=== PATIENT | male | born 1930 | race Caucasian/White ===

== ENCOUNTER 2017-07-16 18:58 | Inpatient (IN) | payer OTHER ==
[~2017-07-16] VITALS: Ht 172.7 cm; Wt 71.8 kg
[~2017-07-16 18:58] MED LIST: AMLODIPINE BESY10 MG PO; AMLODIPINE BESYL5 MG PO; ASPIR 8181 M1 PO; AUGMENTIN875 MG PO; BESIVANCE5 ML RIGHT EYE; CENTRUM SILVER1 EAC3 PO; CITALOPRAM HBR10 MG PO; COZAAR25 MG PO; CYANOCOBALAM1000 MCG PO; DIOVAN320 MG PO; DUREZOL 0.100 DROP/5 RIGHT EYE; FIBER THERAPY660 G1 PO; FINASTERIDE5 MG PO; FISH OIL 1,0001 EAC7 PO; FLAXSEED OIL1000 M4 PO; FLOMAX0.4 MG PO; Feosol PO; GLUCOVANCE 21 TABLET PO; GLYBURID-METFO1 EAC1 PO; HYDROCHLOROTH12.5 M3 PO; IRON160 M1 PO; LATANOPROST2.5 ML RIGHT EYE; LIDODERM 5% P1 PATCH TD; LOSARTAN POTAS100 MG PO; PANTOPRAZOLE SO40 MG PO; PLAVIX75 MG PO; PRAVASTATIN SOD20 MG PO; PRILOSEC10 MG PO; PROLENSA1.6 ML RIGHT EYE; PROTONIX40 MG PO; PriLOSEC PO; SIMBRINZA 1%-0.28 ML BOTH EYES; SUCRALFATE1 GM PO; ULTRAM50 MG PO; VERAPAMIL HCL240 M2 PO
[2017-07-16 20:05] LABS: MCH 29.9 PG (29.0-34.0); MCHC 33.4 G/DL (30.0-36.0); MCV 89.5 FL (86-99); MEAN PLAT.VOLUME 10.4 uM^3 (9.0-12.4); PLATELET COUNT 119 K/uL (156-360); RBC DIS.WIDTH-CV 12.4 % (11.8-14.6); RED BLOOD COUNT 3.24 M/uL (4.00-5.50); WHITE BLOOD COUNT 8.4 K/uL (4.1-10.2)
[2017-07-16 20:11] LABS: CHLORIDE 101 mEq/L (99-109); POTASSIUM 5.3 mEq/L (3.7-5.4); SODIUM 132 mEq/L (136-147)
[2017-07-16 20:14] LABS: GLUCOSE 254 mg/dL (70-99)
[2017-07-16 20:15] LABS: ANION GAP 11 MEQ/L (2-14)
[2017-07-16 20:16] LABS: TOTAL BILIRUBIN 1.7 mg/dL (0.0-1.0)
[2017-07-16 20:17] LABS: ALKALINE PHOSPHATASE 82 IU/L (3-129); GFR ESTIMATE (CALCULATED) 38 mL/min/
[2017-07-16 20:18] LABS: UREA NITROGEN (BUN) 41 mg/dL (9-23)
[2017-07-16 21:30] LABS: ADD MIUA? YES; BILIRUBIN NEGATIVE; BLOOD SMALL; COLOR YELLOW ((YELLOW)); GLUCOSE (STRIP) >=500; KETONES NEGATIVE; LEUKOCYTES NEGATIVE; NITRITE NEGATIVE; PROTEIN (STRIP) 30; SPECIFIC GRAVITY 1.015 (1.000-1.030); UROBILINOGEN 0.2 MG/DL (0.2-1.0)
[2017-07-16 21:50] LABS: BACTERIA RARE /HPF; EPITHELIAL CELLS RARE /HPF; HYALINE CASTS 0-5 /LPF; MUCUS TRACE /LPF; RED BLOOD CELLS 0-5 /HPF (0-5); UCUL ADDED? NO; WHITE BLOOD CELLS 0-5 /HPF (0-5)
[2017-07-16 22:49] LABS: LIPASE 17 U/L (1.0-51.0)
[2017-07-17 00:47] LABS: INFLUENZA A VIRAL ANTIGEN NEGATIVE; INFLUENZA B VIRAL ANTIGEN NEGATIVE
[2017-07-17] MEDS ORDERED: COLACE100 MG PO (01:46)
[2017-07-17] MEDS ORDERED: METFORMIN HCL500 MG PO (01:46)
[2017-07-17] MEDS ORDERED: ERGOCALCIF50000 UNIT PO (01:46)
[2017-07-17] MEDS ORDERED: PROMETHAZINE12.5 M1 PO (01:47)
[2017-07-17 03:29] LABS: TROP-I INTERPRETATION NEGATIVE
[2017-07-17 03:37] LABS: C-REACTIVE PROTEIN 126.3 MG/L (0-10)
[2017-07-17 04:30] VITALS: BP 121/60
[2017-07-17 06:25] LABS: HEMATOCRIT 27.2 % (38.0-50.0); MCH 29.4 PG (29.0-34.0); MCHC 32.4 G/DL (30.0-36.0); MEAN PLAT.VOLUME 10.3 uM^3 (9.0-12.4); PLATELET COUNT 102 K/uL (156-360); RBC DIS.WIDTH-CV 12.5 % (11.8-14.6); RBC DIS.WIDTH-SD 41.5 % (39-53); RED BLOOD COUNT 2.99 M/uL (4.00-5.50)
[2017-07-17 06:26] LABS: POINT-OF-CARE METER ID UU14208750
[2017-07-17 07:30] VITALS: BP 121/59
[2017-07-17 08:37] LABS: ANION GAP 9 MEQ/L (2-14); CHLORIDE 105 MEQ/L (99-109); POTASSIUM 4.4 MEQ/L (3.7-5.4); SODIUM 136 MEQ/L (136-147); TOTAL BILIRUBIN 1.2 MG/DL (0.0-1.0)
[2017-07-17 08:43] LABS: ALKALINE PHOSPHATASE 64 IU/L (3-129); GFR ESTIMATE (CALCULATED) 47 mL/min/; GLUCOSE 183 mg/dL (70-99); UREA NITROGEN (BUN) 36 mg/dL (9-23)
[2017-07-17 11:45] VITALS: BP 142/61
[2017-07-17 11:55] LABS: POINT-OF-CARE METER ID UU14208750
[2017-07-17 15:04] VITALS: BP 128/62
[2017-07-17 16:46] LABS: POINT-OF-CARE METER ID UU14208750
[2017-07-17 19:47] VITALS: BP 129/60
[2017-07-17 22:04] LABS: POINT-OF-CARE METER ID UU14208750
[2017-07-17 23:58] VITALS: BP 112/56
[2017-07-18 04:14] VITALS: BP 120/60
[2017-07-18 06:20] LABS: POINT-OF-CARE METER ID UU14208750
[2017-07-18 06:50] LABS: ALKALINE PHOSPHATASE 61 IU/L (3-129); ANION GAP 7 MEQ/L (2-14); CHLORIDE 105 MEQ/L (99-109); GFR ESTIMATE (CALCULATED) 51 mL/min/; GLUCOSE 173 mg/dL (70-99); POTASSIUM 4.6 MEQ/L (3.7-5.4); SAMPLE HEMOLYSIS CHECK 0; SAMPLE ICTERIC CHECK 0; SAMPLE LIPEMIA CHECK 0; SODIUM 137 MEQ/L (136-147); TOTAL BILIRUBIN 1.3 MG/DL (0.0-1.0); UREA NITROGEN (BUN) 25 mg/dL (9-23)
[2017-07-18 08:03] VITALS: BP 124/59
[2017-07-18 11:24] LABS: POINT-OF-CARE METER ID UU14208750
[2017-07-18 12:13] VITALS: BP 114/58
[2017-07-18 16:56] VITALS: BP 131/55
[2017-07-18 17:04] LABS: POINT-OF-CARE METER ID UU14208750
[2017-07-18 19:24] VITALS: BP 126/59
[2017-07-18 21:57] LABS: POINT-OF-CARE METER ID UU14162508
[2017-07-18 23:42] VITALS: BP 125/59
[2017-07-19] VITALS (8 sets, daily range): BP systolic 116–144; BP diastolic 55–77
[2017-07-19 02:34] LABS: TROP-I INTERPRETATION POSITIVE
[2017-07-19 02:39] LABS: TROPONIN-I 0.92 ng/mL (0.0-0.30)
[2017-07-19 07:02] LABS: POINT-OF-CARE METER ID UU14162508
[2017-07-19 08:57] LABS: TROP-I INTERPRETATION POSITIVE; TROPONIN-I 0.87 ng/mL (0.0-0.30)
[2017-07-19 09:26] LABS: MCH 30.9 PG (29.0-34.0); MCHC 34.5 G/DL (30.0-36.0); MCV 89.5 FL (86-99); MEAN PLAT.VOLUME 10.8 uM^3 (9.0-12.4); PLATELET COUNT 124 K/uL (156-360); RBC DIS.WIDTH-CV 12.4 % (11.8-14.6); RBC DIS.WIDTH-SD 40.7 % (39-53); RED BLOOD COUNT 3.24 M/uL (4.00-5.50); WHITE BLOOD COUNT 8.7 K/uL (4.1-10.2)
[2017-07-19 09:33] LABS: ANION GAP 9 MEQ/L (2-14); CHLORIDE 105 MEQ/L (99-109); POTASSIUM 4.4 MEQ/L (3.7-5.4); SAMPLE HEMOLYSIS CHECK 0; SAMPLE ICTERIC CHECK 0; SAMPLE LIPEMIA CHECK 0; SODIUM 138 MEQ/L (136-147)
[2017-07-19 09:38] LABS: GFR ESTIMATE (CALCULATED) > 59 mL/min/; GLUCOSE 201 mg/dL (70-99); UREA NITROGEN (BUN) 24 mg/dL (9-23)
[2017-07-19 12:06] LABS: POINT-OF-CARE METER ID UU14208750
[2017-07-19 16:55] LABS: POINT-OF-CARE METER ID UU14162508
[2017-07-19 21:45] LABS: POINT-OF-CARE METER ID UU14208750
[2017-07-20 03:44] VITALS: BP 118/57
[2017-07-20 06:17] LABS: POINT-OF-CARE METER ID UU14208750
[2017-07-20 07:25] VITALS: BP 132/67
[2017-07-20 11:30] VITALS: BP 130/59
[2017-07-20 11:46] LABS: POINT-OF-CARE METER ID UU14208750
[2017-07-20 15:25] VITALS: BP 140/67
[2017-07-20 16:41] LABS: POINT-OF-CARE METER ID UU14162508
[2017-07-20 19:21] VITALS: BP 115/67
[2017-07-21 00:16] VITALS: BP 114/64
[2017-07-21 00:17] LABS: POINT-OF-CARE METER ID UU14162508
[2017-07-21 04:33] VITALS: BP 124/60
[2017-07-21 06:48] LABS: POINT-OF-CARE METER ID UU14162508
[2017-07-21 07:17] VITALS: BP 130/62
[2017-07-21 11:47] LABS: POINT-OF-CARE METER ID UU14162508
== END 2017-07-21 15:00 | disposition home health service (06) | DRG 872 ==
LOC: EME 18:58 → EDOF 07-17 02:38 → 2EAST 07-17 02:38 → ENRESERV 07-17 02:42 → 2EAST 07-17 03:58
PROVIDERS: Emergency Medicine; Hospitalist
DX: R78.81 Bacteremia (principal); N17.9 Acute kidney failure, unspecified; E86.0 Dehydration; E87.1 Hypo-osmolality and hyponatremia; B95.7 Other staphylococcus as the cause of diseases classified elsewhere; H60.11 Cellulitis of right external ear; B95.61 Methicillin susceptible Staphylococcus aureus infection as the cause of diseases classified elsewhere; H10.9 Unspecified conjunctivitis; I12.9 Hypertensive chronic kidney disease with stage 1 through stage 4 chronic kidney disease, or unspecified chronic kidney disease; N18.4 Chronic kidney disease, stage 4 (severe); E11.22 Type 2 diabetes mellitus with diabetic chronic kidney disease; D69.6 Thrombocytopenia, unspecified; R17 Unspecified jaundice; J40 Bronchitis, not specified as acute or chronic; R74.8 Abnormal levels of other serum enzymes; E78.5 Hyperlipidemia, unspecified; R07.89 Other chest pain; M54.5 Low back pain; K21.9 Gastro-esophageal reflux disease without esophagitis; D64.9 Anemia, unspecified; Z95.0 Presence of cardiac pacemaker; Z95.2 Presence of prosthetic heart valve; Z85.828 Personal history of other malignant neoplasm of skin; Z87.891 Personal history of nicotine dependence; Z91.81 History of falling
CPT/HCPCS: 36415; 71010; 71250; 72131; 74176; 80048; 80053; 81003; 82948; 83605; 83690; 84484; 85025; 85027; 85651; 86140; 87040; 87070; 87077; 87086 GA; 87147; 87186; 87502; 87801; 90686; 93005; 93306; 97530 GO; 99281; 99285; C1894; J0690; J1650; J1815; J2405; J7030; J7050

== ENCOUNTER 2017-09-04 11:35 | Emergency (ER) | payer OTHER ==
[~2017-09-04] VITALS: Ht 172.7 cm; Wt 68.8 kg
[~2017-09-04 11:35] MED LIST changes: +CIPRO250 MG PO; +COLACE100 MG PO; +ERGOCALCIF50000 UNIT PO; +FLAGYL500 MG PO; +METFORMIN HCL500 MG PO; +ONDANSETRON HCL4 MG PO; +PROMETHAZINE12.5 M1 PO; +TYLENOL EXTRA500 MG PO; +VITAMIN C1000 MG PO
[2017-09-04 12:35] LABS: HEMATOCRIT 35.3 % (38.0-50.0); MCH 28.7 PG (29.0-34.0); MCHC 32.6 G/DL (30.0-36.0); MEAN PLAT.VOLUME 9.5 uM^3 (9.0-12.4); RBC DIS.WIDTH-CV 13.4 % (11.8-14.6); RBC DIS.WIDTH-SD 43.6 % (39-53); RED BLOOD COUNT 4.01 M/uL (4.00-5.50); WHITE BLOOD COUNT 10.7 K/uL (4.1-10.2)
[2017-09-04 12:37] LABS: PLATELET COUNT 177 K/uL (156-360)
[2017-09-04 12:47] LABS: CHLORIDE 100 mEq/L (99-109); SODIUM 137 mEq/L (136-147)
[2017-09-04 12:48] LABS: GLUCOSE 276 mg/dL (70-99)
[2017-09-04 12:50] LABS: ANION GAP 12 MEQ/L (2-14)
[2017-09-04 12:52] LABS: GFR ESTIMATE (CALCULATED) 47 mL/min/
[2017-09-04 12:53] LABS: UREA NITROGEN (BUN) 21 mg/dL (9-23)
[2017-09-04 13:00] LABS: TROP-I INTERPRETATION NEGATIVE; TROPONIN-I 0.02 ng/mL (0.0-0.30)
[2017-09-04 16:15] LABS: TROP-I INTERPRETATION NEGATIVE; TROPONIN-I 0.03 ng/mL (0.0-0.30)
[2017-09-04 17:56] VITALS: BP 129/60
== END 2017-09-04 17:57 | disposition home or self-care (01) ==
LOC: EME 11:35
PROVIDERS: Emergency Medicine
DX: R07.9 Chest pain, unspecified (principal); E87.5 Hyperkalemia; N17.9 Acute kidney failure, unspecified; E11.9 Type 2 diabetes mellitus without complications; E78.5 Hyperlipidemia, unspecified; I10 Essential (primary) hypertension; Z79.84 Long term (current) use of oral hypoglycemic drugs; Z87.891 Personal history of nicotine dependence; F32.9 Major depressive disorder, single episode, unspecified; K21.9 Gastro-esophageal reflux disease without esophagitis; F41.9 Anxiety disorder, unspecified; Z85.828 Personal history of other malignant neoplasm of skin
CPT/HCPCS: 71020; 78582; 80048; 84484; 85027; 85379; 93005; 99281; 99285; A9540; A9567

== ENCOUNTER → 2018-01-06 | Outpatient (CLI) | payer OTHER ==
[~2018-01-06] VITALS: Ht 175.3 cm; Wt 68.5 kg
[~2018-01-06] MED LIST changes: +CARAFATE1 GM PO; +COZAAR50 MG PO; +JANUVIA25 M1 PO; -LOSARTAN POTAS100 MG PO; +REMERON15 M2 PO
== END | disposition home or self-care (01) ==
LOC: AMB 07:52
PROVIDERS: Internal Medicine Gastroenterology
PROC: 0DJ68ZZ Inspection of Stomach, Via Natural or Artificial Opening Endoscopic (ICD-10-PCS; principal; 2018-01-06)
DX: C64.9 Malignant neoplasm of unspecified kidney, except renal pelvis (principal); C78.89 Secondary malignant neoplasm of other digestive organs; K25.9 Gastric ulcer, unspecified as acute or chronic, without hemorrhage or perforation; K21.9 Gastro-esophageal reflux disease without esophagitis; I10 Essential (primary) hypertension; E78.5 Hyperlipidemia, unspecified; E11.40 Type 2 diabetes mellitus with diabetic neuropathy, unspecified; Z79.4 Long term (current) use of insulin
CPT/HCPCS: 82948; 88173; 88305; 88312; J0330